=== PATIENT | female | born 1935 | race Caucasian/White ===

== ENCOUNTER 2024-09-07 15:09 | Inpatient (IN) | payer OTHER ==
[2024-09-07] VITALS (7 sets, daily range): BP systolic 108–148; BP diastolic 62–87; TEMP 97.5–98.9; O2SAT 91–94
[~2024-09-07] VITALS: Ht 157.5 cm; Wt 51.3 kg
[2024-09-07] MEDS: ALBUTEROL SULFATE 2.5MG/0.5ML INH NEB SOLN INH ONE (15:41)
[2024-09-07] MEDS: IPRATROPIUM 0.5MG/ALBUTEROL 2.5MG INH SOL UD 3ML (DUONEB) NEB ONE (15:41)
[2024-09-07 15:51] LABS: ABG BASE EXCESS -6.5 (-2.0-2.0); ABG HCO3 17.6 MMOL/L (22.0-26.0); ABG PARTIAL PRESSURE CO2 28.5 mmHg (35.0-45.0); ABG PARTIAL PRESSURE O2 133.4 mmHg (75.0-100.0); ABG STANDARD HCO3 19.1 MMOL/L. (22.0-26.0); ABG TOTAL CO2 18.5 MMOL/L (23.0-31.0); ABG pH (ARTERIAL) 7.408 UNITS (7.350-7.450)
[2024-09-07 15:57] LABS: BASO % 0.6 % (0.0-1.0); EOS % 0.3 % (0.0-3.0); HEMATOCRIT 21.4 % (36.0-47.0); LYMPH # 0.8 10^3/uL (1.5-5.0); LYMPH % 11.4 % (24.0-44.0); MEAN CORPUSCULAR HEMOGLOBIN 22.6 pg (27.0-33.0); MEAN CORPUSCULAR HGB CONC 28.5 g/dl (32.0-36.5); MEAN CORPUSCULAR VOLUME 79.3 fl (80.0-96.0); MONO # 0.4 10^3/uL (0.0-0.8); MONO % 6.7 % (2.0-8.0); NEUTROPHILS # 5.3 10^3/uL (1.5-8.5); NEUTROPHILS % 80.7 % (36.0-66.0); PLATELET COUNT, AUTOMATED 287 10^3/uL (150-450); WHITE BLOOD COUNT 6.6 10^3/uL (4.0-10.0)
[2024-09-07 16:01] LABS: HEMOGLOBIN 6.1 g/dl (12.0-15.5)
[2024-09-07] MEDS ORDERED: ISOVUE-370 76% 100ML VIAL As Ordered ONE (16:08)
[2024-09-07 16:27] LABS: ALBUMIN 3.2 G/DL (3.2-5.2); ALKALINE PHOSPHATASE 69 U/L (35-104); ALT/SGPT 13 U/L (7.0-40); AST/SGOT 31 U/L (<34); BILIRUBIN,DIRECT 0.1 MG/DL (<0.4); BILIRUBIN,TOTAL 0.5 MG/DL (0.3-1.2); BLOOD UREA NITROGEN 22 MG/DL (9-23); CALCIUM LEVEL 8.1 MG/DL (8.3-10.6); CARBON DIOXIDE LEVEL 20 MMOL/L (20-31); CHLORIDE LEVEL 104 MMOL/L (98-107); CK-MB VALUE MASS < 1.0 NG/ML (<3.6); CREATININE FOR GFR 0.66 MG/DL (0.55-1.30); GLOMERULAR FILTRATION RATE > 60.0 (>32); GLUCOSE, FASTING 119 MG/DL (74-106); POTASSIUM SERUM 4.7 MMOL/L (3.5-5.1); SODIUM LEVEL 137 MMOL/L (136-145); TOTAL PROTEIN 7.3 G/DL (5.7-8.2)
[2024-09-07 16:29] LABS: THYROID STIMULATING HORMONE 0.462 uIU/ML (0.55-4.78)
[2024-09-07 16:30] LABS: THYROXINE (T4) 11.1 UG/DL (4.5-10.9)
[2024-09-07 16:39] LABS: PROCALCITONIN 0.04 ng/ml
[2024-09-07 16:46] LABS: CPK CREATINE PHOSPHOKINASE 78 U/L (34-145); MB/CK RELATIVE INDEX 1.28 (< OR =4)
[2024-09-07] MEDS: NS (Normal Saline) 0.9% 1,000 ML IV SCH (16:53)
[2024-09-07 17:34] LABS: CK-MB VALUE MASS 1.5 NG/ML (<3.6)
[2024-09-07 17:35] LABS: MB/CK RELATIVE INDEX 2.45 (< OR =4)
[2024-09-07] MEDS: LevoFLOXacin 750 MG TABLET PO ONE (17:48)
[2024-09-07] MEDS ORDERED: ALPR0.5T3 PO (17:56)
[2024-09-07] MEDS ORDERED: BUSP10TA PO (17:56)
[2024-09-07] MEDS ORDERED: SYNT100T PO (17:56)
[2024-09-07] MEDS ORDERED: SOLI5TAB PO (17:56)
[2024-09-07] MEDS ORDERED: ACET300T47 PO (17:56)
[2024-09-07] MEDS ORDERED: PREG150C2 PO (17:56)
[2024-09-07] MEDS ORDERED: ECOT81TA5 PO (17:57)
[2024-09-07] MEDS: LIDOCAINE 2% 5ML JELLY UROJET TOP ONE (18:44)
[2024-09-07 19:25] LABS: KETONE, URINE AUTO RFX TRACE mg/dL (NEGATIVE); NITRITE, URINE AUTO RFX NEGATIVE (NEGATIVE); RBC, URINE AUTO RFX 12 /HPF (0-3); SQUAM EPITHELIAL CELL UR AURFX 0 /HPF (0-6)
[2024-09-07] MEDS ORDERED: SENNA 8.6 MG TAB (SENOKOT) PO PRN (19:25)
[2024-09-07] MEDS: FUROSEMIDE 20MG/2ML VIAL IV ONE ×2 (19:33→22:44)
[2024-09-07 19:39] LABS: LEUKOCYTE ESTERASE UR AUTO RFX TRACE (NEGATIVE); WBC, URINE AUTO RFX TNTC /HPF (0-3)
[2024-09-07 20:22] LABS: CK-MB VALUE MASS 1.9 NG/ML (<3.6)
[2024-09-07 20:28] LABS: MB/CK RELATIVE INDEX 2.96 (< OR =4)
[2024-09-07] MEDS ORDERED: HOME MED LIST COMPLETE! XX SCH (20:45)
[2024-09-07] MEDS: DOCUSATE SODIUM 100MG CAPSULE PO SCH (22:44)
[2024-09-07] MEDS: PREGABALIN 75 MG CAP(LYRICA) PO ONE (22:45)
[2024-09-07] MEDS ORDERED: IPRATROPIUM 0.5MG/ALBUTEROL 2.5MG INH SOL UD 3ML (DUONEB) NEB PRN (23:25)
[2024-09-08] VITALS (21 sets, daily range): BP systolic 102–185; BP diastolic 61–107; TEMP 97–98.6; O2SAT 80–98
[2024-09-08] MEDS: FUROSEMIDE 40MG/4ML VIAL IV ONE (02:22)
[2024-09-08 02:57] LABS: ABG BASE EXCESS -6.5 (-2.0-2.0); ABG HCO3 18.8 MMOL/L (22.0-26.0); ABG O2 SATURATION 94.9 % (95.0-99.0); ABG PARTIAL PRESSURE CO2 36.6 mmHg (35.0-45.0); ABG PARTIAL PRESSURE O2 82.9 mmHg (75.0-100.0); ABG STANDARD HCO3 19.1 MMOL/L. (22.0-26.0); ABG TOTAL CO2 19.9 MMOL/L (23.0-31.0); ABG pH (ARTERIAL) 7.329 UNITS (7.350-7.450)
[2024-09-08 05:40] LABS: BASO % 0.1 % (0.0-1.0); EOS % 0.1 % (0.0-3.0); HEMATOCRIT 29.1 % (36.0-47.0); LYMPH # 0.5 10^3/uL (1.5-5.0); LYMPH % 4.5 % (24.0-44.0); MEAN CORPUSCULAR HEMOGLOBIN 24.9 pg (27.0-33.0); MEAN CORPUSCULAR HGB CONC 31.6 g/dl (32.0-36.5); MEAN CORPUSCULAR VOLUME 78.6 fl (80.0-96.0); MONO # 0.9 10^3/uL (0.0-0.8); NEUTROPHILS # 9.7 10^3/uL (1.5-8.5); NEUTROPHILS % 86.8 % (36.0-66.0); PLATELET COUNT, AUTOMATED 302 10^3/uL (150-450); WHITE BLOOD COUNT 11.1 10^3/uL (4.0-10.0)
[2024-09-08 05:41] LABS: HEMOGLOBIN 9.2 g/dl (12.0-15.5)
[2024-09-08 05:55] LABS: BLOOD UREA NITROGEN 23 MG/DL (9-23); CALCIUM LEVEL 8.2 MG/DL (8.3-10.6); CARBON DIOXIDE LEVEL 23 MMOL/L (20-31); CHLORIDE LEVEL 102 MMOL/L (98-107); CREATININE FOR GFR 0.71 MG/DL (0.55-1.30); GLOMERULAR FILTRATION RATE > 60.0 (>32); GLUCOSE, FASTING 152 MG/DL (74-106); MAGNESIUM LEVEL 2.1 MG/DL (1.8-2.4); PHOSPHORUS LEVEL 4.7 MG/DL (2.4-5.1); POTASSIUM SERUM 4.4 MMOL/L (3.5-5.1); SODIUM LEVEL 138 MMOL/L (136-145)
[2024-09-08] MEDS: LEVOTHYROXINE 100MCG TABLET (0.1MG) PO SCH (06:00)
[2024-09-08] MEDS ORDERED: busPIRone 10 MG TAB PO PRN (08:10)
[2024-09-08] MEDS: ASPIRIN 81MG ENTERIC TABLET PO SCH (08:33)
[2024-09-08] MEDS: ALPRAZolam 0.5 MG TAB PO PRN (08:34)
[2024-09-08] MEDS: FUROSEMIDE 40MG/4ML VIAL IV SCH (08:34)
[2024-09-08] MEDS: PANTOPRAZOLE 40MG VIAL IV SCH (09:27)
[2024-09-08] MEDS: LevoFLOXacin 250 MG TABLET PO ONE (09:46)
[2024-09-08] MEDS: BISOPROLOL FUMARATE 1.25MG PER 1/4 TABLET PO ONE (12:28)
[2024-09-08] MEDS ORDERED: HEPARIN SOD (PORCINE) 5000UNITS/ML 1ML VIAL/SYRINGE IV PRN (15:40)
[2024-09-08] MEDS ORDERED: HEPARIN DRIP 25,000 UNITS in IV 1 EA IV SCH (15:40)
[2024-09-08] MEDS: ACETAMINOPH W/CODEINE #3 TAB UD PO PRN (17:46)
[2024-09-08 19:08] LABS: BLOOD UREA NITROGEN 22 MG/DL (9-23); CALCIUM LEVEL 8.5 MG/DL (8.3-10.6); CARBON DIOXIDE LEVEL 27 MMOL/L (20-31); CHLORIDE LEVEL 103 MMOL/L (98-107); CREATININE FOR GFR 0.73 MG/DL (0.55-1.30); GLOMERULAR FILTRATION RATE > 60.0 (>32); GLUCOSE, FASTING 105 MG/DL (74-106); POTASSIUM SERUM 3.7 MMOL/L (3.5-5.1); SODIUM LEVEL 141 MMOL/L (136-145)
[2024-09-08] MEDS: SOLIFENACIN 5 MG TAB PO SCH (20:05)
[2024-09-09] VITALS (7 sets, daily range): BP systolic 91–127; BP diastolic 55–86; TEMP 97.5–98.8; O2SAT 94–97
[2024-09-09 05:14] LABS: BASO % 0.3 % (0.0-1.0); EOS % 0.1 % (0.0-3.0); HEMATOCRIT 28.2 % (36.0-47.0); HEMOGLOBIN 8.8 g/dl (12.0-15.5); LYMPH # 1.6 10^3/uL (1.5-5.0); LYMPH % 20.7 % (24.0-44.0); MEAN CORPUSCULAR HEMOGLOBIN 24.4 pg (27.0-33.0); MEAN CORPUSCULAR HGB CONC 31.2 g/dl (32.0-36.5); MEAN CORPUSCULAR VOLUME 78.3 fl (80.0-96.0); MONO # 1.1 10^3/uL (0.0-0.8); MONO % 13.9 % (2.0-8.0); NEUTROPHILS # 4.9 10^3/uL (1.5-8.5); NEUTROPHILS % 64.9 % (36.0-66.0); PLATELET COUNT, AUTOMATED 257 10^3/uL (150-450); WHITE BLOOD COUNT 7.6 10^3/uL (4.0-10.0)
[2024-09-09 05:39] LABS: TOTAL IRON BINDING CAPACITY 323 UG/DL (250-425)
[2024-09-09 05:40] LABS: BLOOD UREA NITROGEN 21 MG/DL (9-23); CALCIUM LEVEL 8.3 MG/DL (8.3-10.6); CARBON DIOXIDE LEVEL 27 MMOL/L (20-31); CHLORIDE LEVEL 105 MMOL/L (98-107); CREATININE FOR GFR 0.65 MG/DL (0.55-1.30); FERRITIN 25.2 NG/ML (7.3-270.7); FOLATE 15.63 NG/ML (>5.4); GLOMERULAR FILTRATION RATE > 60.0 (>32); GLUCOSE, FASTING 96 MG/DL (74-106); IRON (FE) 14 UG/DL (50-170); MAGNESIUM LEVEL 2.3 MG/DL (1.8-2.4); PERCENT SATURATION 4.3 % (13.2-45.0); POTASSIUM SERUM 3.4 MMOL/L (3.5-5.1); SODIUM LEVEL 141 MMOL/L (136-145)
[2024-09-09 05:41] LABS: VITAMIN B12 LEVEL 1018 PG/ML (211-911)
[2024-09-09] MEDS: LevoFLOXacin 250 MG TABLET PO SCH (05:43)
[2024-09-09] MEDS: BISOPROLOL FUMARATE 1.25MG PER 1/4 TABLET PO SCH (11:01)
[2024-09-09] MEDS: SPIRONOLACTONE 25 MG TAB PO SCH (11:02)
[2024-09-09] MEDS: POTASSIUM CHLORIDE 10MEQ SR TABLET PO SCH (11:02)
[2024-09-09] MEDS: QUEtiapine FUMARATE 25 MG TAB PO ONE (15:05)
[2024-09-09] MEDS: POTASSIUM CHLORIDE 10MEQ SR TABLET PO ONE (15:05)
[2024-09-09] MEDS: QUEtiapine FUMARATE 25 MG TAB PO SCH (18:00)
[2024-09-09] MEDS: OLANZapine INTRAMUSCULAR 10MG VIAL IM ONE (19:31)
[2024-09-09] MEDS: ALPRAZolam 0.5 MG TAB PO PRN (22:51)
[2024-09-10] VITALS (10 sets, daily range): BP systolic 107–126; BP diastolic 55–72; TEMP 97.5–98.9; O2SAT 94–97
[2024-09-10] MEDS: QUEtiapine FUMARATE 25 MG TAB PO ONE (05:10)
[2024-09-10 06:57] LABS: BLOOD UREA NITROGEN 16 MG/DL (9-23); CALCIUM LEVEL 8.2 MG/DL (8.3-10.6); CARBON DIOXIDE LEVEL 27 MMOL/L (20-31); CHLORIDE LEVEL 106 MMOL/L (98-107); CREATININE FOR GFR 0.58 MG/DL (0.55-1.30); GLOMERULAR FILTRATION RATE > 60.0 (>32); GLUCOSE, FASTING 103 MG/DL (74-106); MAGNESIUM LEVEL 2.2 MG/DL (1.8-2.4); POTASSIUM SERUM 3.1 MMOL/L (3.5-5.1); SODIUM LEVEL 144 MMOL/L (136-145)
[2024-09-10 07:03] LABS: HEMATOCRIT 29.1 % (36.0-47.0); HEMOGLOBIN 9.3 g/dl (12.0-15.5); MEAN CORPUSCULAR HEMOGLOBIN 25.1 pg (27.0-33.0); MEAN CORPUSCULAR VOLUME 78.4 fl (80.0-96.0); PLATELET COUNT, AUTOMATED 276 10^3/uL (150-450); RED BLOOD COUNT 3.71 10^6/uL (4.00-5.40); WHITE BLOOD COUNT 6.5 10^3/uL (4.0-10.0)
[2024-09-10 07:12] LABS: CK-MB VALUE MASS 1.5 NG/ML (<3.6)
[2024-09-10 07:16] LABS: CPK CREATINE PHOSPHOKINASE 150 U/L (34-145)
[2024-09-10] MEDS: PANTOPRAZOLE 40MG TAB (PROTONIX) PO SCH (09:00)
[2024-09-10] MEDS: FUROSEMIDE 40 MG TAB PO SCH (09:00)
[2024-09-10] MEDS: POTASSIUM CHLORIDE 10MEQ SR TABLET PO ONE ×2 (11:50→13:10)
[2024-09-10] MEDS: IRON SUCROSE 100MG 5ML VIAL IV SCH (16:58)
[2024-09-10] MEDS: HALOPERIDOL LACTATE 5MG/ML VIAL IV ONE (20:15)
[2024-09-11 04:08] VITALS: BP 111/61; TEMP 98.2; O2SAT 92
[2024-09-11 06:18] LABS: HEMOGLOBIN 9.3 g/dl (12.0-15.5); MEAN CORPUSCULAR HEMOGLOBIN 24.3 pg (27.0-33.0); MEAN CORPUSCULAR VOLUME 78.3 fl (80.0-96.0); PLATELET COUNT, AUTOMATED 289 10^3/uL (150-450); RED BLOOD COUNT 3.83 10^6/uL (4.00-5.40)
[2024-09-11 06:29] LABS: ALKALINE PHOSPHATASE 73 U/L (35-104); ALT/SGPT 24 U/L (7.0-40); AST/SGOT 19 U/L (<34); BILIRUBIN,TOTAL 1.3 MG/DL (0.3-1.2); BLOOD UREA NITROGEN 19 MG/DL (9-23); CALCIUM LEVEL 8.5 MG/DL (8.3-10.6); CARBON DIOXIDE LEVEL 23 MMOL/L (20-31); CHLORIDE LEVEL 111 MMOL/L (98-107); CREATININE FOR GFR 0.57 MG/DL (0.55-1.30); GLOMERULAR FILTRATION RATE > 60.0 (>32); GLUCOSE, FASTING 105 MG/DL (74-106); POTASSIUM SERUM 3.3 MMOL/L (3.5-5.1); SODIUM LEVEL 146 MMOL/L (136-145); TOTAL PROTEIN 6.8 G/DL (5.7-8.2)
[2024-09-11 07:42] VITALS: BP 106/59; TEMP 98.5; O2SAT 94
[2024-09-11] MEDS: POTASSIUM CHLORIDE 10MEQ SR TABLET PO SCH (09:48)
[2024-09-11 12:03] VITALS: BP 109/74; TEMP 98.2; O2SAT 94
[2024-09-11 15:39] VITALS: BP 116/69; TEMP 98.2; O2SAT 94
[2024-09-11 19:13] VITALS: BP 111/58; TEMP 97.4; O2SAT 96
[2024-09-11] MEDS ORDERED: PANT40TA29 PO (19:25)
[2024-09-11] MEDS ORDERED: SENO8.6T5 PO (19:25)
[2024-09-11] MEDS ORDERED: FURO40TA2 PO (19:25)
[2024-09-11] MEDS ORDERED: ALDA25TA2 PO (19:25)
[2024-09-11] MEDS ORDERED: QUET1TAB17 PO (19:25)
[2024-09-11] MEDS ORDERED: POTA-136 PO (19:25)
[2024-09-11] MEDS ORDERED: COLA100C5 PO (19:25)
[2024-09-11] MEDS ORDERED: ATOR80TA59 PO (19:25)
[2024-09-11] MEDS ORDERED: JARD1TAB PO (19:26)
[2024-09-11] MEDS: HEPARIN SOD (PORCINE) 5000UNITS/ML 1ML VIAL/SYRINGE SQ SCH (20:47)
[2024-09-11 23:51] VITALS: BP 120/67; TEMP 97.6; O2SAT 95
[2024-09-12 04:30] VITALS: BP 127/69; TEMP 97.5; O2SAT 96
[2024-09-12 06:22] LABS: HEMATOCRIT 29.3 % (36.0-47.0); HEMOGLOBIN 9.1 g/dl (12.0-15.5); MEAN CORPUSCULAR HEMOGLOBIN 24.6 pg (27.0-33.0); MEAN CORPUSCULAR HGB CONC 31.1 g/dl (32.0-36.5); MEAN CORPUSCULAR VOLUME 79.2 fl (80.0-96.0); PLATELET COUNT, AUTOMATED 284 10^3/uL (150-450); WHITE BLOOD COUNT 6.3 10^3/uL (4.0-10.0)
[2024-09-12 06:54] LABS: ALBUMIN 2.9 G/DL (3.2-5.2); ALKALINE PHOSPHATASE 67 U/L (35-104); ALT/SGPT 20 U/L (7.0-40); AST/SGOT 16 U/L (<34); BILIRUBIN,TOTAL 1.1 MG/DL (0.3-1.2); BLOOD UREA NITROGEN 22 MG/DL (9-23); CALCIUM LEVEL 8.5 MG/DL (8.3-10.6); CARBON DIOXIDE LEVEL 23 MMOL/L (20-31); CHLORIDE LEVEL 110 MMOL/L (98-107); CREATININE FOR GFR 0.62 MG/DL (0.55-1.30); GLOMERULAR FILTRATION RATE > 60.0 (>32); GLUCOSE, FASTING 89 MG/DL (74-106); POTASSIUM SERUM 3.5 MMOL/L (3.5-5.1); SODIUM LEVEL 146 MMOL/L (136-145); TOTAL PROTEIN 6.6 G/DL (5.7-8.2)
[2024-09-12 07:39] VITALS: BP 104/58; TEMP 98.1; O2SAT 96
[2024-09-12 09:15] VITALS: BP 104/58
[2024-09-12] MEDS: ATORVASTATIN 20 MG TAB PO SCH (09:16)
[2024-09-12 12:01] VITALS: BP 117/59; TEMP 98.1; O2SAT 97
[2024-09-12] MEDS ORDERED: METO1TAB87 PO (19:45)
== END 2024-09-12 14:36 | disposition home health service (06) | DRG 291 ==
LOC: M ED 15:09 → EDBD 15:09 → M ED INP 19:08 → M ICU 23:06 → M PCU 09-09 07:33
PROVIDERS: ADMIT Internal Medicine Pulmonary Disease; ATTEND Internal Medicine
PROC: 30233N1 Transfusion of Nonautologous Red Blood Cells into Peripheral Vein, Percutaneous Approach (ICD-10-PCS; 2024-09-07)
PROC: B246ZZZ Ultrasonography of Right and Left Heart (ICD-10-PCS; principal; 2024-09-08)
DX: I50.23 Acute on chronic systolic (congestive) heart failure (principal); R57.0 Cardiogenic shock; J96.01 Acute respiratory failure with hypoxia; I24.89 Other forms of acute ischemic heart disease; E87.20 Acidosis, unspecified; D50.9 Iron deficiency anemia, unspecified; I95.9 Hypotension, unspecified; E03.9 Hypothyroidism, unspecified; F41.9 Anxiety disorder, unspecified; K59.00 Constipation, unspecified; N30.90 Cystitis, unspecified without hematuria; R41.89 Other symptoms and signs involving cognitive functions and awareness; I51.3 Intracardiac thrombosis, not elsewhere classified; F32.A Depression, unspecified; N32.81 Overactive bladder; Z91.148 Patient's other noncompliance with medication regimen for other reason; Z79.82 Long term (current) use of aspirin; Z79.890 Hormone replacement therapy; Z79.899 Other long term (current) drug therapy; Z88.0 Allergy status to penicillin

== ENCOUNTER 2024-12-09 09:09 | Emergency (ER) | payer OTHER ==
[~2024-12-09] VITALS: Ht 157.5 cm; Wt 54.5 kg
[~2024-12-09 09:09] MED LIST: ACET300T47 PO; ALDA25TA2 PO; ALPR0.5T3 PO; ATOR80TA59 PO; BUSP10TA PO; COLA100C5 PO; ECOT81TA5 PO; FURO40TA2 PO; JARD1TAB PO; METO1TAB87 PO; PANT40TA29 PO; POTA-136 PO; PREG150C2 PO; QUET1TAB17 PO; SENO8.6T5 PO; SOLI5TAB PO; SYNT100T PO
[2024-12-09 09:54] LABS: BASO % 0.4 % (0.0-1.0); EOS # 0.2 10^3/uL (0.0-0.5); EOS % 3.8 % (0.0-3.0); HEMATOCRIT 32.2 % (36.0-47.0); HEMOGLOBIN 10.4 g/dl (12.0-15.5); LYMPH # 1.9 10^3/uL (1.5-5.0); LYMPH % 35.4 % (24.0-44.0); MEAN CORPUSCULAR HEMOGLOBIN 29.5 pg (27.0-33.0); MEAN CORPUSCULAR HGB CONC 32.3 g/dl (32.0-36.5); MEAN CORPUSCULAR VOLUME 91.5 fl (80.0-96.0); MONO # 0.5 10^3/uL (0.0-0.8); MONO % 9.2 % (2.0-8.0); NEUTROPHILS # 2.7 10^3/uL (1.5-8.5); PLATELET COUNT, AUTOMATED 251 10^3/uL (150-450); RED BLOOD COUNT 3.52 10^6/uL (4.00-5.40); WHITE BLOOD COUNT 5.2 10^3/uL (4.0-10.0)
[2024-12-09 10:11] LABS: PROTHROMBIN TIME 13.5 SECONDS (12.5-14.5)
[2024-12-09] MEDS: NS 500 ML IV ONE (10:20)
[2024-12-09 10:27] LABS: ALBUMIN 3.7 G/DL (3.2-5.2); BILIRUBIN,TOTAL 0.6 MG/DL (0.3-1.2); CALCIUM LEVEL 9.1 MG/DL (8.3-10.6); CREATININE FOR GFR 0.8 MG/DL (0.55-1.30); GLOMERULAR FILTRATION RATE 71.3 (>32); POTASSIUM SERUM 4.5 MMOL/L (3.5-5.1); TOTAL PROTEIN 7.7 G/DL (5.7-8.2)
[2024-12-09 11:43] LABS: PROTEIN, URINE MANUAL REFLEX 3+ mg/dL (NEGATIVE)
[2024-12-09 11:44] LABS: KETONE, URINE MANUAL REFLEX NEGATIVE (NEGATIVE); NITRITE, URINE MANUAL RFX NEGATIVE (NEGATIVE); UROBILINOGEN, UA MANUAL REFLEX NORMAL (NORMAL)
[2024-12-09 11:50] LABS: HYALINE CAST, URINE RFX NONE SEEN /lpf (0-1); MICROSCOPIC EXAM RFX PERFORMED; RBC, URINE MAN REFLEX TNTC /hpf (0-3); SQUAMOUS EPITHELIAL URINE RFX NONE SEEN /hpf (SMALL AMT)
[2024-12-09] MEDS ORDERED: CIPR250T26 PO (11:58)
[2024-12-09 12:21] VITALS: BP 116/66; TEMP 97; O2SAT 97
== END 2024-12-09 12:25 | disposition home or self-care (01) ==
LOC: M ED 09:09 → EDBD 09:09 → M ED 12:25
DX: R31.0 Gross hematuria (principal); I25.119 Atherosclerotic heart disease of native coronary artery with unspecified angina pectoris; I50.22 Chronic systolic (congestive) heart failure; E03.9 Hypothyroidism, unspecified; Z88.0 Allergy status to penicillin; Z79.1 Long term (current) use of non-steroidal anti-inflammatories (NSAID); Z79.4 Long term (current) use of insulin; Z79.899 Other long term (current) drug therapy

== ENCOUNTER → 2024-12-11 | Outpatient (REF) | payer OTHER ==
[~2024-12-11] MED LIST changes: +CIPR250T26 PO
== END ==
LOC: M SMT 15:08
PROVIDERS: ATTEND Nurse Practitioner Family
DX: R31.0 Gross hematuria (principal)